=== PATIENT | female | born 1950 | race Caucasian/White ===

== ENCOUNTER 2017-11-01 19:57 | Emergency (ER) | payer MEDICARE, BC ==
[~2017-11-01] VITALS: Ht 170.2 cm; Wt 78.3 kg
[~2017-11-01 19:57] MED LIST: ALPR0.25 PO; CYCL-36 PO; FLON0.053; LOSA25 PO; LOSA25TA31 PO; NEXI40CA PO; RIVA20 PO; SIMV20 PO
[2017-11-01 20:01] VITALS: BP 150/73; PULSE 80; RESP 18; TEMP 97.4; O2SAT 97
[2017-11-01] MEDS ORDERED: TETANUS/DIPHTHERIA TOXOID ADULT 0.5 ML VIAL IM ONE (20:30)
[2017-11-01] MEDS ORDERED: SIMV20TA PO (20:33)
[2017-11-01] MEDS ORDERED: HYDR25TA5 PO (20:33)
[2017-11-01] MEDS ORDERED: XANA1TAB2 PO (20:33)
[2017-11-01] MEDS ORDERED: ASPI-516 CHEW (20:33)
[2017-11-01] MEDS ORDERED: MONT10TA2 PO (20:33)
[2017-11-01] MEDS ORDERED: NEXI40CA PO (20:33)
[2017-11-01] MEDS ORDERED: LOSA50TA PO ×2 (20:33)
[2017-11-01] MEDS ORDERED: VITA100021 SQ (20:33)
[2017-11-01] MEDS ORDERED: FOLI400T PO (20:33)
[2017-11-01] MEDS ORDERED: CELE200C PO (20:33)
--- NOTE | 2017-11-01 20:55 | PD ---
HPI Chief Complaint: Laceration/Skin Injury Time Seen by Provider: 20:07 Travel History International Travel<30 days: No Contact w/Intl Traveler<30days: No Traveled to known affect area: No History of Present Illness HPI 66 y female presents emergency department for evaluation of a laceration to the left base of the thumb after she was playing with her dog and he accidentally bit her. Says she has full range of motion of her hand and thumb without weakness, numbness, or tingling. Patient says that she was able to control the bleeding with pressure and elevation. Immunizations are up to date for her dog. Her concern is a possible disruption from her previous surgery from Dr. Zuniga. She has had carpal tunnel release surgery and an arthritis surgery. She does not remember her last tetanus vaccination. History Past Medical History Anxiety: Yes Arthritis: Yes (osteo) High Cholesterol: Yes Deep Vein Thrombosis: Yes (to left calf-2013) GERD: Yes Hypertension: Yes Medical other: Yes (arthroplasty to l wrist, carpal tunnel to l wrist) Tetanus Vaccination: Unknown Influenza Vaccination: Yes ?: Not Menopausal: Yes Dilation and Curettage (D&C): Yes Tubal Ligation: Yes Past Surgical History Abdominal Surgery: Yes (exploratory lap- procedure for gerd) Body Medical Devices: pins/screws Other Surgery: Yes (left hand cysts removed) Social History Tobacco Use in Home: No Alcohol Use: Yes (occas. wine) Tobacco Use: No (quit 8 yrs ago, smoked 3/4 pack a day) Substance Use: No Allergies-Medications (Allergen,Severity, Reaction): Coded Allergies: oxycodone (Verified Allergy, Intermediate, Itching, 11/01/17) Reported Meds & Prescriptions Reported Meds & Active Scripts Active Augmentin (Amoxicillin-Clavulanate) 875-125 Mg Tab 1 Tab PO BID Reported Hydrochlorothiazide 25 Mg Tab 25 Mg PO DAILY Vitamin B-12 (Cyanocobalamin) 1,000 Mcg Subl 1,000 Mcg SQ MONTHLY Folic Acid 0.4 Mg Tab 1,000 Mcg PO DAILY Celebrex (Celecoxib) 200 Mg Cap 200 Mg PO DAILY Singulair (Montelukast Sodium) 10 Mg Tab 10 Mg PO HS Simvastatin 20 Mg Tab 20 Mg PO HS Aspirin 81 Mg Chew 81 Mg CHEW DAILY Nexium (Esomeprazole DR) 40 Mg Capdr 40 Mg PO DAILY Xanax (Alprazolam) 1 Mg Tab 1 Mg PO Q8H PRN Losartan (Losartan Potassium) 50 Mg Tab 50 Mg PO HS Losartan (Losartan Potassium) 50 Mg Tab 50 Mg PO DAILY ROS Except as stated in HPI: all other systems reviewed are Neg Physical Exam Narrative GENERAL: Well-nourished, well-developed patient. SKIN: Focused skin assessment warm/dry. Left thumb-6 cm laceration in the thumb web, approximates well. Bleeding controlled. No evidence of bony involvement. Unable to visualize any tendons or ligaments. No deep structure involvement visualized. Grade 5/5 flexion extension of thumb. Neurovascular intact. HEAD: Normocephalic. EYES: No scleral icterus. No injection or drainage. NECK: Supple, trachea midline. No JVD or lymphadenopathy. CARDIOVASCULAR: Regular rate and rhythm without murmurs, gallops, or rubs. RESPIRATORY: Breath sounds equal bilaterally. No accessory muscle use. MUSCULOSKELETAL: No cyanosis, or edema. BACK: Nontender without obvious deformity. No CVA tenderness. Data Data Last Documented VS Vital Signs Date Time Temp Pulse Resp B/P (MAP) Pulse Ox O2 Delivery O2 Flow Rate FiO2 11/01/17 20:01 97.4 80 18 150/73 (98) 97 Orders Orders Tetanus/Diphtheria Tox Adult (Tetanus/Di (11/01/17 20:30) Ed Discharge Order (11/01/17 20:57) MDM Medical Decision Making Medical Screen Exam Complete: Yes Emergency Medical Condition: Yes Differential Diagnosis Dog bite, thumb laceration, cellulitis, avulsion, abrasion Narrative Course 66-year-old female presents emergency department for evaluation of a laceration to left thumb base after an accidental dog bite to her left thumb. Patient says this was her dog and immunizations are up-to-date. Vital signs are stable. She does not remember her last tetanus vaccination. A tetanus vaccination was administered in the emergency department today. The wound was gaping and required 6 sutures to approximate the skin. The wound was explored thoroughly and did not demonstrate any bony involvement or retained tooth fragments. I offered the patient x-ray to evaluate for any retained foreign bodies or bony involvement. We discussed the risk vs benefits of imaging today. Patient states that she would like to hold off and she will be evaluated by her primary care physician in a couple of days. She will be discharged with Augmentin. Suture removal in 7-10 days. I advised on wound care for home. Advised to return for worsening or persistent symptoms. Procedures Procedure Narrative LACERATION LOCATION: Left thumb base LENGTH: 6 cm NUMBER OF STITCHES/PAULA: 6 REPAIR: The area of the laceration was prepped with Betadine and sterilely draped. The laceration was infiltrated with 1% lidocaine without epinephrine. The wound was copiously irrigated and explored without evidence of foreign body, tendon injury or neurovascular injury. The wound was loosely closed using 4-0 Prolene. This was a single layer repair. A sterile dressing and iodoform gauze was applied. The patient was advised to keep the dressing clean and dry. Patient tolerated the procedure well. Diagnosis Primary Impression: Dog bite Qualified Codes: W54.0XXA - Bitten by dog, initial encounter Additional Impression: Laceration of thumb Qualified Codes: S61.012A - Laceration without foreign body of left thumb without damage to nail, initial encounter Referrals: Primary Care Physician Additional Instructions: Follow up with your primary care physician within 2-3 days for wound check Keep area clean and dry for 24 hours. After 24, you may bathe as normal but dry the area thoroughly. You may use [id number] triple antibiotic ointments for your injury daily. Change dressings daily. If bleeding starts, apply pressure and elevate the area. If you developed increased redness, swelling, or pain return to the emergency department as this could be a sign of infection. Suture removal in 7-10 days. Take all antibiotics as prescribed Scripts Amoxicillin-Clavulanate (Augmentin) 875-125 Mg Tab 1 TAB PO BID for Infection, #14 TAB 0 Refills Prov: Benjamin Azar MD 11/01/17 Disposition: 01 DISCHARGE HOME Condition: Stable Primary Care Physician Non-Staff Skye Majano Nov 01, 2017 20:55
[2017-11-01] MEDS ORDERED: AUGM875T3 PO (20:56)
== END 2017-11-01 21:17 | disposition home or self-care (01) ==
LOC: PHEFT 19:57
DX: S61.012A Laceration without foreign body of left thumb without damage to nail, initial encounter (principal); F41.9 Anxiety disorder, unspecified; M19.90 Unspecified osteoarthritis, unspecified site; E78.00 Pure hypercholesterolemia, unspecified; K21.9 Gastro-esophageal reflux disease without esophagitis; I10 Essential (primary) hypertension; W54.0XXA Bitten by dog, initial encounter; Z23 Encounter for immunization; Z86.718 Personal history of other venous thrombosis and embolism
CPT/HCPCS: 12002; 90471; 90714